=== PATIENT | female | born 1970 | race Caucasian/White ===

== ENCOUNTER → 2017-11-07 | Outpatient (CLI) | payer BC | END | disposition home or self-care (01) | LOC: KCIC MRI 07:46 | DX: S89.82XA Other specified injuries of left lower leg, initial encounter (principal); M22.42 Chondromalacia patellae, left knee; M25.462 Effusion, left knee; R60.0 Localized edema; X58.XXXA Exposure to other specified factors, initial encounter; Y93.89 Activity, other specified; Y92.89 Other specified places as the place of occurrence of the external cause; Y99.8 Other external cause status | CPT/HCPCS: 73721 ==

== ENCOUNTER 2017-12-06 06:55 | Observation (INO) | payer BC ==
[2017-12-06] MEDS ORDERED: LIDOCAINE 1% PF 2 ML VIAL. ID (07:00)
[2017-12-06] MEDS ORDERED: ceFAZolin 2GM PREMIX 2 GM/50 ML BAG IV (07:00)
[2017-12-06] MEDS ORDERED: ONDANSETRON PF 4 MG/2 ML VIAL. IV ×2 (07:00→13:30)
[2017-12-06] MEDS ORDERED: fentaNYL PF VIAL 100 MCG/2 ML VIAL IV (07:00)
[2017-12-06] MEDS ORDERED: MORPHINE SULFATE 2 MG/ML DISP.SYRIN. IV (07:00)
[2017-12-06 07:36] LABS: ADD MAN DIFF? NO
[2017-12-06 07:40] LABS: BASO # 0.1 x10^3/uL (0.0-0.2); BASO % 1 % (0-3); EOS # 0.3 x10^3/uL (0.0-0.7); EOS % 3 % (0-3); HEMATOCRIT 39.7 % (36.0-47.0); HEMOGLOBIN 13.7 g/dL (12.0-15.5); LYMPH # 1.8 x10^3/uL (1.0-4.8); LYMPH % 22 % (24-48); MEAN CORPUSCULAR HEMOGLOBIN 32 pg (25-35); MEAN CORPUSCULAR HGB CONC 34 g/dL (31-37); MEAN CORPUSCULAR VOLUME 93 fL (79-100); MONO # 0.5 x10^3/uL (0.0-1.1); MONO % 6 % (0-9); NEUT # 5.5 x10^3uL (1.8-7.7); NEUT % 67 % (31-73); PLATELET COUNT 257 x10^3/uL (140-400); RED BLOOD COUNT 4.27 x10^6/uL (3.50-5.40); RED CELL DISTRIBUTION WIDTH 13.4 % (11.5-14.5); WHITE BLOOD COUNT 8.2 x10^3/uL (4.0-11.0)
[2017-12-06] MEDS: IV RINGERS,LACTATED 1000ML 1,000 ML IV (07:42)
[2017-12-06 07:51] LABS: ANION GAP 9 (6-14); BLOOD UREA NITROGEN 15 mg/dL (7-20); CALCIUM 8.7 mg/dL (8.5-10.1); CARBON DIOXIDE 26 mmol/L (21-32); CHLORIDE 103 mmol/L (98-107); CREATININE 0.8 mg/dL (0.6-1.0); GFR 77.6; GLUCOSE 109 mg/dL (70-99); POTASSIUM 4.1 mmol/L (3.5-5.1); SODIUM 138 mmol/L (136-145)
[2017-12-06 08:15] LABS: NEG OBC UR NEG; POS OBC UR POS; U PREG PATIENT NEGATIVE (NEG)
[2017-12-06] MEDS ORDERED: ROCURONIUM 50 MG/5 ML VIAL. (08:39)
[2017-12-06] MEDS ORDERED: FAMOTIDINE 20 MG/2 ML VIAL (08:39)
[2017-12-06] MEDS ORDERED: LIDOCAINE 2% PF Vial for OR 5 ML VIAL. (08:39)
[2017-12-06] MEDS ORDERED: fentaNYL PF VIAL 100 MCG/2 ML VIAL ×2 (08:39→12:03)
[2017-12-06] MEDS ORDERED: DEXAMETHASONE SOD PHOS 20 MG/5 ML VIAL. (08:39)
[2017-12-06] MEDS ORDERED: PROPOFOL 20 ML IV (08:39)
[2017-12-06] MEDS ORDERED: ONDANSETRON PF 4 MG/2 ML VIAL. (08:39)
[2017-12-06] MEDS ORDERED: MIDAZOLAM HCL/PF 2 MG/2 ML VIAL. (08:40)
[2017-12-06] MEDS: EPINEPHrine VIAL 30 MG/30 ML VIAL (10:45)
[2017-12-06] MEDS: BUPIVACAINE-EPI 0.25%-1:200000 50 ML VIAL. (10:45)
[2017-12-06] MEDS ORDERED: NEOSTIGMINE METHYLSULFATE 5 MG/5 ML SYRINGE. (11:28)
[2017-12-06] MEDS ORDERED: SEVOFLURANE > 120 MINUTES. IH (11:28)
[2017-12-06] MEDS ORDERED: GLYCOPYRROLATE 1 MG/5 ML VIAL. (11:28)
[2017-12-06] MEDS ORDERED: DEXTROSE 50% 25 GM / 50ML DISP.SYRIN. IV (13:30)
[2017-12-06] MEDS ORDERED: POLYETHYLENE GLYCOL 3350 17 GM PACKET. PO (13:30)
[2017-12-06] MEDS: fentaNYL PF VIAL 100 MCG/2 ML VIAL IV ×4 (13:35→14:30)
[2017-12-06] MEDS ORDERED: MORPHINE SULFATE 2 MG/ML DISP.SYRIN. ×3 (14:11→15:20)
[2017-12-06] MEDS: MORPHINE SULFATE 2 MG/ML DISP.SYRIN. IV ×8 (14:16→20:38)
[2017-12-06] MEDS ORDERED: ALBUTEROL SULFATE 2.5 MG/3 ML NEBU. NEB (14:45)
[2017-12-06] MEDS: PROCHLORPERAZINE 10 MG/2 ML VIAL. IV (15:22)
[2017-12-06] MEDS: oxyCODONE/APAP 5/325 1 TAB TABLET PO (19:34)
[2017-12-06] MEDS: MORPHINE SULFATE 4 MG/ML DISP.SYRIN. IV (22:37)
[2017-12-07] MEDS: MORPHINE SULFATE 4 MG/ML DISP.SYRIN. IV ×2 (02:17→06:39)
[2017-12-07] MEDS ORDERED: MAGNESIUM HYDROXIDE 2,400 MG/30 ML ORAL.SUSP. PO (06:00)
[2017-12-07] MEDS: oxyCODONE/APAP 5/325 1 TAB TABLET PO ×2 (07:38→13:58)
[2017-12-07] MEDS: fentaNYL PF VIAL 100 MCG/2 ML VIAL IV (07:39)
[2017-12-07] MEDS: CITALOPRAM 20 MG TABLET. PO (09:00)
[2017-12-07] MEDS: PANTOPRAZOLE 40 MG TABLET.DR. PO (09:18)
[2017-12-07] MEDS: ASPIRIN 325 MG TABLET PO (09:18)
[2017-12-07] MEDS: SENNOSIDES/DOCUSATE 8.6/50MG TABLET. PO (09:19)
[2017-12-07] MEDS: busPIRone 10 MG TABLET. PO (09:21)
[2017-12-07] MEDS ORDERED: BISACODYL 10 MG SUPP.RECT. PR (16:00)
== END 2017-12-07 14:05 | disposition home or self-care (01) ==
LOC: SURG 06:55 → 4 NORTH 14:00
DX: S83.522A Sprain of posterior cruciate ligament of left knee, initial encounter (principal); F17.210 Nicotine dependence, cigarettes, uncomplicated; M22.40 Chondromalacia patellae, unspecified knee; X58.XXXA Exposure to other specified factors, initial encounter; Y93.89 Activity, other specified; Y92.89 Other specified places as the place of occurrence of the external cause; Y99.8 Other external cause status
CPT/HCPCS: 29889; 36415; 71046; 80048; 81025; 82306; 85025; 96365; 96375; 96376; 97116-GP; 97162-GP; 97166-GO; 97530-GP; 97535-GO; C1713; C1763; C1782; G0378; G0379; G8978-CL-GP; G8979-CI-GP; G8987-CJ-GO; G8988-CI-GO; J0171; J0690; J0780; J1100; J2250; J2270; J2405; J2704; J2710; J3010; J3490; J7120; S0028

== ENCOUNTER 2018-09-27 08:41 | Observation (INO) | payer BC ==
[~2018-09-27] VITALS: Ht 172.7 cm; Wt 105.2 kg
[~2018-09-27 08:41] MED LIST: BUSP10TA PO; CITA40TA5 PO; CLON0.5T11 PO; HYDROmorphone 2 MG/ML VIAL IV PRN; IV RINGERS,LACTATED 1000ML 1,000 ML IV SCH; LACT1CAP38 PO; LIDOCAINE 1% PF 2 ML VIAL. ID PRN; LINA72CA PO; MORPHINE SULFATE 2 MG/ML VIAL. IV PRN; MULT-114 PO; NAPR220C4 PO; ONDANSETRON PF 4 MG/2 ML VIAL. IV PRN; PROAIR RESPICL90 MCG IH; PROCHLORPERAZINE 10 MG/2 ML VIAL. IV PRN; RABE20TA18 PO; SOY40TAB PO; [UNRECOGNIZED DRUG - CODE] PO; fentaNYL PF VIAL 100 MCG/2 ML VIAL IV PRN
[2018-09-27] MEDS ORDERED: BUPIVAC MPF-EPI 0.5%-1:200000 30 ML VIAL. ONE (08:54)
[2018-09-27] MEDS ORDERED: METHYLENE BLUE 1% 10 ML VIAL. ONE (08:54)
[2018-09-27] MEDS ORDERED: ESTROGENS, CONJ VAGINAL CREAM 30GM TUBE. ONE (08:54)
[2018-09-27 09:05] LABS: U PREG PATIENT NEGATIVE (NEG)
[2018-09-27] MEDS ORDERED: ROCURONIUM 50 MG/5 ML VIAL. ONE (09:14)
[2018-09-27] MEDS ORDERED: MIDAZOLAM HCL/PF 2 MG/2 ML VIAL. ONE (09:14)
[2018-09-27] MEDS ORDERED: fentaNYL PF VIAL 250 MCG/5 ML VIAL ONE (09:14)
[2018-09-27] MEDS ORDERED: GLYCOPYRROLATE 1 MG/5 ML VIAL. ONE (10:58)
[2018-09-27] MEDS ORDERED: NEOSTIGMINE METHYLSULFATE 5 MG/5 ML SYRINGE. ONE (10:58)
--- NOTE | 2018-09-27 11:26 | PDOC ---
BRIEF OPERATIVE NOTE Date: Sep 27, 2018 Pre-Op Diagnosis menorrhagia, dysmenorrhea Post-Op Diagnosis enlarged uterus Procedure Performed LAVH/bilateral salpingectomy Surgeon Dr. Jyoti Delgado Turbinated Bone Grinder KOSTAS Mcneil Anesthesiologist Dr. Quiroz Anesthesia Type: General Blood Loss 70cc IV Fluid 1L Urine Output 100cc clear via [place] Specimens Obtained cervix, uterus, bilateral tubes Findings enlarged bulbous, RV uterus, normal bilateral tubes and ovaries (fallop ring off left tube and removed from cul de sac) Complications none Operative Note [id number] JYOTI DELGADO MD Sep 27, 2018 11:25
[2018-09-27] MEDS ORDERED: MAGNESIUM HYDROXIDE 2,400 MG/30 ML ORAL.SUSP. PO PRN (11:30)
[2018-09-27] MEDS ORDERED: MORPHINE SULFATE 2 MG/ML VIAL. IV PRN (11:30)
[2018-09-27] MEDS ORDERED: ZOLPIDEM 5 MG TABLET. PO PRN (11:30)
[2018-09-27] MEDS ORDERED: 0.9 % SODIUM CHLORIDE 10 ML DISP.SYRIN. IV PRN (11:30)
[2018-09-27] MEDS ORDERED: MAG HYDROX/ALUMINUM HYD/SIMETH 30 ML ORAL.SUSP PO PRN (11:30)
[2018-09-27] MEDS ORDERED: diphenhydrAMINE HCL 25 MG CAPSULE PO PRN (11:30)
[2018-09-27] MEDS ORDERED: NALOXONE 0.4 MG/ML VIAL. IV PRN (11:30)
[2018-09-27] MEDS ORDERED: SIMETHICONE 80 MG TAB.CHEW PO PRN (11:30)
[2018-09-27] MEDS ORDERED: CALCIUM CARBONATE 500 MG TAB.CHEW PO PRN (11:30)
[2018-09-27] MEDS ORDERED: diphenhydrAMINE 50 MG/ML VIAL IV PRN (11:30)
[2018-09-27] MEDS ORDERED: ONDANSETRON PF 4 MG/2 ML VIAL. IV PRN (11:30)
[2018-09-27] MEDS ORDERED: LACTULOSE 20 GM/30 ML SOLUTION. PO PRN (11:30)
[2018-09-27] MEDS ORDERED: ALBUTEROL SULFATE 2.5 MG/3 ML NEBU. NEB PRN (11:45)
--- NOTE | 2018-09-27 12:17 | OP ---
DATE OF SURGERY: 09/27/2018 PREOPERATIVE DIAGNOSES: Menorrhagia, dysmenorrhea. POSTOPERATIVE DIAGNOSES: Menorrhagia. Dysmenorrhea, with an enlarged retroverted uterus, bulbous appearing, suspected adenomyosis. PROCEDURES: Laparoscopic-assisted vaginal hysterectomy, bilateral salpingectomy. SURGEON: Tonya Delgado MD TREE EXPERT: KOSTAS Skinner. ANESTHESIOLOGIST: Dr. Quiroz. ANESTHESIA: General. ESTIMATED BLOOD LOSS: 70 mL. URINE OUTPUT: 100 mL clear via Watson catheter. IV FLUIDS: 1 L crystalloid. SPECIMENS: Cervix, uterus, bilateral tubes. FINDINGS: An enlarged bulbous retroverted uterus, normal bilateral tubes and ovaries. Tubes had evidence of a prior tubal ligation. There was a Falope ring free in the cul-de-sac that was removed that I believe was from the left tube. COMPLICATIONS: None. DESCRIPTION OF PROCEDURE: This patient was taken to the operating room where general anesthesia was placed. The patient was placed in a dorsal lithotomy position in [facility]. The patient's abdomen and vagina were prepped and draped in the normal sterile fashion and a Watson had been inserted under sterile technique. At this point, after a timeout was performed, a bivalve speculum was placed in the patient's vagina. A single-tooth tenaculum was used to grasp the anterior lip of the cervix. She did have a large cervical polyp at the cervical os. 10 mL of 0.25% Marcaine with epinephrine was used to circumferentially inject around the cervix for both hemodissection and hemostatic purposes later. The Valtchev uterine manipulator was placed through the endocervical os, locked on the single tooth tenaculum and the bivalve speculum was then removed. Top gloves were discarded and changed. Attention was then turned to the abdomen where a small supraumbilical skin incision was made with the scalpel. A curved Caitlin was used to dissect through the subcuticular layer to the fascia. The 5 mm Visiport was used to directly into the abdominal cavity. Opening patient pressure was 4-5 mmHg. Carbon dioxide gas was used then appropriately insufflate the abdominal cavity to maintain a pressure of 15 mmHg. She was placed in Trendelenburg position and right and left lower quadrant ports were placed under direct visualization. It was all clear on the inside transilluminating the abdominal wall, finding an area clear of any vasculature, making a small incision and placing the 5 mm trocars under direct visualization without difficulty. 2 mL of air was placed in the cuff. I did move the camera and looked at the umbilical port as well and it was clear. At this point, the left tube and ovary were examined. The right tube and ovary were examined. The ovaries were normal, the tubes were elevated, and the LigaSure was used to cauterize above the ovary, below the tube and do a bilateral salpingectomy. I started on the left salpingectomy. The left round ligament was cauterized and cut and the left uterine ovarian pedicle. This was done exactly the same on the right, starting with the salpingectomy, then crossing the right round ligament and the right uterine ovarian pedicle, cauterizing and cutting with the LigaSure. The bladder flap was created sharply and pulled down. Uterine vessels were obtained on both sides and then hugging the posterior cervix, going down through the cardinal and broad ligaments, getting the blood supply to the uterus. Once this was done, the uterus was blanched and everything was free. All instruments were removed from the abdomen and attention was turned vaginally. The single tooth and Valtchev were removed. The weighted speculum was placed in the patient's vagina. Thyroid Dusty clamps were placed on the anterior and posterior lips of the cervix respectively. A scalpel was used to make a circumferential incision in the cervix. An open Ray-Erasto 4 x 4 was used to gently push up the anterior bladder peritoneum, and the anterior cul-de-sac was digitally and bluntly entered. The Ray-Erasto was removed and a curved Mainor was placed in the anterior cul-de-sac. The cervix was elevated and the posterior cul-de-sac was sharply entered with curved Garcia scissors and a #0 Vicryl stitch was used to secure the posterior peritoneum here to the vaginal cuff. It was tagged with a curved Caitlin clamp, and the needle was cut and passed off. The short weighted vaginal speculum was removed and replaced with the long weighted Lisette speculum in the posterior cul-de-sac. Curved Adelina clamps x 2 were placed on the patient's left uterosacral ligament where they were doubly clamped with curved Heaneys, cut with Garcia scissors and suture ligated x 2 with 0 Vicryl. The second one was taken through the vaginal cuff securing uterosacral ligament to the vaginal cuff. It was tagged with a straight Caitlin clamp, and the needle was cut and passed off. This was done exactly the same on the right side, double clamping the uterosacrals with curved Adelina's, cutting with Garcia scissors, suture ligating x 2 with #0 Vicryl, again taking the second one through the vaginal cuff, securing uterosacral ligament to the vaginal cuff, cutting and taking the needle off. At this point, the right angle clamp was taken through the remaining pedicle on the left side where the vaginal LigaSure was used to cauterize and cut the remaining pedicle. The right side also I took through the remaining pedicle, curved clamp and the vaginal LigaSure was used to cauterize the right side. The cervix, uterus, bilateral tubes were delivered in toto and passed off for permanent pathology. The long Allis was used to grasp the anterior bladder peritoneum. A sponge stick was used to examine the pedicles. The long weighted vaginal Lisette speculum was removed and replaced with the short weighted vaginal speculum. A 2-0 Vicryl was taken through the anterior bladder peritoneum, left uterosacral ligament, posterior peritoneum and right uterosacral ligament, thus closing the peritoneum in a pursestring like fashion. The right and left uterosacral tags were clipped and a full length 2-0 Vicryl was used to close the vaginal cuff in an anterior to posterior running locked fashion and tied to that posterior cuff tag. Once this was done, an interrupted stitch was placed in the middle for hemostasis, and it was with excellent results. The cuff was hemostatic, everything looked good, so everything was removed vaginally. All gloves were discarded and changed. The legs were placed back down and attention was turned back above for a second look. All gloves were discarded and changed. Gas was reinsufflated. The patient was placed back in Trendelenburg. Copious irrigation revealed hemostasis. Tisseel was placed over the cuff. After I did the Tisseel, there was a tiny bit of oozing at the right side of the cuff. The LigaSure was used on this with excellent results. Continued irrigation revealed hemostasis. So the 2 mL of air were taken out of all 3 trocars. The right and left trocars were taken out under direct visualization. They were hemostatic. Gas was released from the umbilical port. All three port sites were closed with 4-0 nylon at the skin and injected with local. The patient is currently being awakened from anesthesia. TONYA DELGADO MD DR: HIRAL/bela JOB#: [id number] / [id number]
[2018-09-27] MEDS ORDERED: fentaNYL PF VIAL 100 MCG/2 ML VIAL ONE (12:40)
[2018-09-27 13:30] VITALS: BP 91/51
[2018-09-27 13:45] VITALS: BP 99/60
[2018-09-27 14:00] VITALS: BP 98/55
[2018-09-27 14:15] VITALS: BP 84/56
[2018-09-27] MEDS: oxyCODONE/APAP 5/325 1 TAB TABLET PO PRN ×2 (14:24→18:27)
[2018-09-27 15:45] VITALS: BP 94/58
[2018-09-27 17:53] VITALS: BP 88/52
[2018-09-28] MEDS ORDERED: clonazePAM 0.5 MG TABLET PO SCH (09:00)
[2018-09-28] MEDS ORDERED: PANTOPRAZOLE 40 MG TABLET.DR. PO SCH (10:00)
[2018-09-28] MEDS ORDERED: CITALOPRAM 20 MG TABLET. PO SCH (10:00)
--- NOTE | 2018-10-02 09:09 | PATHOLOGY ---
[facility] Accession Number: [id number] . 01 Material submitted: . UTERUS, CERVIX, AND BILATERAL FALLOPIAN TUBES . 01 Clinical history: . Dysmenorrhagia . 02 Diagnosis: Uterus and attached bilateral fallopian tubes, laparoscopic-assisted vaginal hysterectomy with bilateral salpingectomy: - Adenomyosis, uterine corpus, subbasal, with myometrial hypertrophy (uterine weight 176 grams). - Endocervical polyp showing chronic inflammation and squamous metaplasia. - Chronic cervicitis with focal squamous metaplasia. - Nabothian cysts and endocervical gland tunnel clusters of cervix. - Tubal metaplasia of endocervix, focal. - Slightly disordered and dyssynchronous secretory endometrium. - Intramural leiomyoma, posterior fundus, small. - Status post bilateral tubal ligation. - Congestion and cystic [place] rests of fallopian tubes. (JPM:sachin; 09/29/2018) MBR/10/02/2018 . 02 Comment: There is no evidence of malignancy. (JPM:sachin; 09/29/2018) . 02 Electronically signed: . Derrick Goodwin MD, Pathologist NPI- [id number] . 01 Gross description: . The specimen is received in formalin, labeled "Filomena Babcock, uterus, cervix, bilateral fallopian tubes", is a uterine corpus (10.0 x 7.0 x 5.5 cm) with attached bilateral, fimbriated fallopian tubes (right = 5.7 cm in length, 0.4 cm diameter and left, = 4.0 cm in length, 0.5 cm diameter) and weighing 176 g in total. A Falope ring is present on the right tube within the isthmus, and no similar ring is identified in the left tube. The serosa is glistening, tellez-pink and smooth. The anterior paracervical soft tissue is inked blue. There is tellez, rubbery polypoid polyp/mass on the anterior cervix approximately at 12:00 and measures 1.5 x 0.8 x 0.7 cm. This mass does not invade into the cervix and is 1.2 cm from the anterior paracervical margin (blue ink) and is 1.0 cm from the anterior lower uterine segment. The endocervical canal measures 3.0 x 1.0 cm. The triangular endometrial cavity is 5.2 x 2.7 cm and is lined by a tellez-pink, lush endometrium that occupies the entire cavity and measures up to 0.6 cm. The tellez-pink, markedly trabeculated myometrium measures up to 2.2 cm and has a mural armendariz-white nodule at the posterior fundus measuring 0.7 x 0.7 x 0.4 cm with a armendariz-white, whorled cut surface. The bilateral fimbriated fallopian tubes serosa is a tellez-pink and smooth and the lumen is well-defined. . Iuss Analyst sections are submitted as follows: A1-A14. Cervix, contiguous sections from 12:00 (A1-A2 = polyp/mass) A15. Anterior lower uterine segment A16. Posterior lower uterine segment A17-A18. Anterior endomyometrium A19. Anterior endometrium A20. Anterior myometrium A21-A22. Posterior endomyometrium with mural nodule A23. Posterior endometrium A24. Posterior myometrium A25. Right parametrium A26. Left parametrium A27. Right fallopian tube A28. Left fallopian tube ([facility]; 09/28/2018) SHS/SHS . 02 Pathologist provided ICD-10: N80.0, N72, N84.1, D25.1 . 02 CPT . 565764 Specimen Comment: A courtesy copy of this report has been sent to Specimen Comment: [phone], . Specimen Comment: Report sent to / DR PEREZ Specimen Comment: A duplicate report has been generated due to demographic updates. Performed at: [address], [place], [place] [id number] MD Migel Briseno MD Phone: [phone] Performed at: 02 [facility] [address] [place], [place] [id number] MD Derrick Goodwin MD Phone: [phone]
== END 2018-09-27 18:50 | disposition home or self-care (01) ==
LOC: SURG 08:41 → 3 NORTH 12:27
PROVIDERS: ADMIT Obstetrics & Gynecology; ATTEND Obstetrics & Gynecology
DX: D25.1 Intramural leiomyoma of uterus (principal); N85.2 Hypertrophy of uterus; N94.6 Dysmenorrhea, unspecified; N85.4 Malposition of uterus; N92.0 Excessive and frequent menstruation with regular cycle; N84.1 Polyp of cervix uteri; Z98.51 Tubal ligation status; N72 Inflammatory disease of cervix uteri
CPT/HCPCS: 36415; 58552; 81025; 86850; 86900; 86901; 90471; 90756; A7015; G0378; G0379; J0690; J2250; J2710; J3010; J3490; J7030; J7120; 88307; Q9968; Q2035

== ENCOUNTER → 2019-01-11 | Outpatient (CLI) | payer BC ==
[~2019-01-11] MED LIST changes: +GADOBUTROL 10 MMOL/10 ML VIAL IV ONE; -HYDROmorphone 2 MG/ML VIAL IV PRN; -IV RINGERS,LACTATED 1000ML 1,000 ML IV SCH; -LIDOCAINE 1% PF 2 ML VIAL. ID PRN; -MORPHINE SULFATE 2 MG/ML VIAL. IV PRN; -ONDANSETRON PF 4 MG/2 ML VIAL. IV PRN; -PROCHLORPERAZINE 10 MG/2 ML VIAL. IV PRN; -fentaNYL PF VIAL 100 MCG/2 ML VIAL IV PRN
--- NOTE | 2019-01-11 10:39 | KCIC ---
EXAMINATION: Magnetic resonance imaging (MRI) of the brain and brainstem without and with contrast 01/11/2019 8:00 AM HISTORY: Vertigo with recent episode of speech impairment and residual dizziness. TECHNIQUE: Multiplanar multi-weighted MRI of the brain and brainstem was performed without and with intravenous contrast using the general brain protocol. Contrast information: 10 mL Gadolinium based contrast COMPARISON: MRI brain September 21, 2011. FINDINGS: The scalp and calvarium are normal. The superior sagittal sinus demonstrates normal venous flow. The corpus callosum is normal in shape and signal intensity. The posterior fossa is unremarkable. The pituitary and sella are normal. The brainstem and craniocervical junction are unremarkable. Diffusion weighted images reveal no hyperintensities to suggest acute cerebral infarction. The susceptibility weighted sequences reveal no evidence of acute or chronic hemorrhage. The ventricles are normal in size and position without evidence of hydrocephalus. There are no areas of abnormal contrast enhancement. The paranasal sinuses are normal. The visualized portions of the mastoids are unremarkable. The orbits appear normal. Normal flow voids are demonstrated in the carotid arteries and basilar artery. IMPRESSION: No evidence for acute or subacute ischemia. There is no acute intracranial abnormality identified. Electronically signed by: Gisel Thrasher MD (01/11/2019 10:36 AM) [facility]
== END | disposition home or self-care (01) ==
LOC: KCIC MRI 07:45
PROVIDERS: ATTEND Family Medicine
DX: H81.43 Vertigo of central origin, bilateral (principal); H53.8 Other visual disturbances; R26.2 Difficulty in walking, not elsewhere classified; R20.2 Paresthesia of skin; Z88.8 Allergy status to other drugs, medicaments and biological substances; Z90.710 Acquired absence of both cervix and uterus; Z87.891 Personal history of nicotine dependence
CPT/HCPCS: 70553; A9585

== ENCOUNTER → 2019-06-11 | Outpatient (CLI) | payer BC ==
[~2019-06-11] MED LIST changes: +CLON-77 PO; -CLON0.5T11 PO; -GADOBUTROL 10 MMOL/10 ML VIAL IV ONE
--- NOTE | 2019-06-11 11:01 | KCIC ---
MR of the right elbow HISTORY: Left elbow pain, generalized, for one month. Swelling. Decreased range of motion. TECHNIQUE: Routine multiplanar sequences are obtained. FINDINGS: The biceps and brachialis tendons are intact. Triceps tendon is intact. Common flexor tendon and ulnar collateral ligament are intact. Common extensor tendon demonstrates mild thickening with some internal fluid signal compatible with tendinosis and mild partial intrasubstance tearing. No high-grade rupture or detachment. No discontinuity of lateral collateral ligament structures. No bone destruction. No acute fracture. No significant joint effusion. Ulnar nerve appears unremarkable. No abnormal soft tissue fluid collection. IMPRESSION: Mild common extensor tendinosis with mild intrasubstance tearing. Electronically signed by: Fred Bruner MD (06/11/2019 10:58 AM) [facility]
--- NOTE | 2019-06-11 11:19 | KCIC ---
MR of the left wrist HISTORY: Left wrist pain for one month. TECHNIQUE: Routine multiplanar sequences are obtained. FINDINGS: The triangular fibrocartilage is intact. The extensor carpi ulnaris tendon is intact. Other extensor compartments are intact. Flexor tendons are intact. Median nerve appears within normal limits. No evidence of scapholunate or lunotriquetral ligament tear. No significant joint effusion. No evidence of bone destruction or acute fracture. Small septated cyst or ganglion anterior to the radioscaphoid joint measuring about 1 cm long axis. IMPRESSION: No evidence of internal derangement. Small cyst or ganglion anterior to the radioscaphoid joint. Electronically signed by: Fred Bruner MD (06/11/2019 11:16 AM) [facility]
== END | disposition home or self-care (01) ==
LOC: KCIC MRI 07:54
PROVIDERS: ATTEND Family Medicine
DX: S46.212A Strain of muscle, fascia and tendon of other parts of biceps, left arm, initial encounter (principal); M25.532 Pain in left wrist; Z90.710 Acquired absence of both cervix and uterus; M77.8 Other enthesopathies, not elsewhere classified; X58.XXXA Exposure to other specified factors, initial encounter; Y93.89 Activity, other specified; Y92.89 Other specified places as the place of occurrence of the external cause; Y99.8 Other external cause status
CPT/HCPCS: 73221